=== PATIENT | female | born 1985 | race American Indian/Alaskan Native ===

== ENCOUNTER 2019-01-18 21:03 | Inpatient (IN) | payer MEDICAID ==
[2019-01-18] MEDS ORDERED: ZOFRAN IV PRN (21:28)
[2019-01-18] MEDS ORDERED: MINERAL OIL PO PRN (21:28)
[2019-01-18] MEDS ORDERED: STADOL IV PRN (21:28)
[2019-01-18] MEDS ORDERED: XYLOCAINE 2% INFILTRATI ONE (21:28)
[2019-01-18] MEDS ORDERED: SUBLIMAZE IV PRN (21:28)
[2019-01-18] MEDS ORDERED: BRETHINE SUB-Q PRN (21:28)
[2019-01-18] MEDS ORDERED: BRETHINE IVP PRN (21:28)
[2019-01-18] MEDS ORDERED: NARCAN 0.4 MG/1 ML IV PRN (21:28)
[2019-01-18] MEDS ORDERED: PITOCin/NS 20 UNIT/1000ML DRIP 20 UNITS/1,000 ML BAG IV SCH (22:00)
[2019-01-18] MEDS ORDERED: PITOCin/NS 30 UNIT/500ML 30 UNITS/500 ML BAG IV SCH (22:00)
[2019-01-18 22:48] LABS: Hemoglobin 10.8 gm/dl (10.1-14.3); Mean Corpuscular HGB Conc 36 % (30-34); Mean Corpuscular Volume 98 fl (79-97); Platelet Count 246 K/mm3 (140-440); Red Blood Count 3.07 M/mm3 (3.65-5.03); Red Cell Distribution Width 13.5 % (13.2-15.2)
[2019-01-18] MEDS: LACTATED RINGERS 1,000 ML IV SCH (23:07)
[2019-01-19] MEDS: LACTATED RINGERS 1,000 ML IV SCH (02:54)
--- NOTE | 2019-01-19 08:55 | History and Physical Report ---
History of Present Illness Date of examination: 01/19/19 Date of admission: 01/18/19 21:03 Chief complaint: Here for induction History of present illness: Pt is at 33 yo at 39.0 wks EGA who presents for IOL for IUGR. She has received care at [facility]. Her has been complicated by a UTI (treated) and obesity. She desires permanent sterilization . She reports positive movement and denies LOF or vaginal bleeding. Past History Past Medical History: no pertinent history Past Surgical History: no surgical history Social history: no significant social history - Obstetrical History Expected Date of Delivery: 01/26/19 Actual Gestation: 39 Week(s) 0 Day(s) : 2 Para: 1 Hx # Term Pregnancies: 1 Number of Living Children: 1 Medications and Allergies Allergies Allergy/AdvReac Type Severity Reaction Status Date / Time No Known Allergies Allergy Unverified 11/13/15 06:37 Home Medications Medication Instructions Recorded Confirmed Last Taken Type No Known Home Medications [No 01/18/19 01/18/19 Unknown History Reported Home Medications] Active Meds: Active Medications Butorphanol Tartrate (Stadol) 2 mg IV Q2H PRN PRN Reason: Pain , Severe (7-10) Ephedrine Sulfate (Ephedrine Sulfate) 10 mg IV Q2M PRN PRN Reason: Hypotension Fentanyl (Sublimaze) 100 mcg IV Q2H PRN PRN Reason: Labor Pain Oxytocin/Sodium Chloride (Pitocin/Ns 20 Unit/1000ml Drip) 20 units in 1,000 mls @ 125 mls/hr IV DIRECT UNIQUE Oxytocin/Sodium Chloride (Pitocin/Ns 30 Unit/500ml) 30 units in 500 mls @ 2 mls/hr IV TITR UNIQUE; Protocol Last Titration: 01/19/19 01:05 Dose: 4 mls/hr, 4 mls/hr Documented by: Lactated Ringer's (Lactated Ringers) 1,000 mls @ 125 mls/hr IV DIRECT UNIQUE Last Admin: 01/19/19 02:54 Dose: 125 mls/hr Documented by: Mineral Oil (Mineral Oil) 30 ml PO QHS PRN PRN Reason: Constipation Naloxone HCl (Narcan 0.4 Mg/1 Ml) 0.1 mg IV Q2MIN PRN PRN Reason: Res Rate </= 8 or 02 SAT < 92% Ondansetron HCl (Zofran) 4 mg IV Q8H PRN PRN Reason: Nausea And Vomiting Terbutaline Sulfate (Brethine) 0.25 mg SUB-Q ONCE PRN PRN Reason: Hyperstimulation/Hypertonicity Terbutaline Sulfate (Brethine) 0.25 mg IVP ONCE PRN PRN Reason: Hyperstimulation/Hypertonicity Review of Systems All systems: negative Cardiovascular: no chest pain, no shortness of breath Breasts: deferred Genitourinary: normal appearance, contractions, no vaginal bleeding, no vaginal discharge, no leakage of fluid Neurological: no headaches - Vital Signs Vital signs: Vital Signs Pulse BP 81 119/70 01/18/19 22:14 01/18/19 22:14 Temp Pulse Resp BP Pulse Ox 98.0 F 74 18 122/64 01/19/19 01:50 01/19/19 07:48 01/19/19 01:50 01/19/19 07:48 - Physical Exam Breasts: Positive: deferred Cardiovascular: Regular rate, Normal S1, Normal S2, No murmurs Lungs: Positive: Clear to auscultation, Normal air movement Abdomen: Positive: normal appearance, soft Genitourinary (Female): Positive: normal external genitalia, normal perenium Vagina: Positive: normal moisture Uterus: Positive: normal size (gravid), normal contour Extremities: Positive: normal - Obstetrical FHR: auscultation normal, category 1 Uterine Contraction Monitor Mode: External Cervical Dilatation: 2.5 Cervical Effacement Percentage: 50 station: -3 Uterine Contraction Frequency (min): 3 Uterine Contraction Duration: 60 seconds Uterine Contraction Pattern: Regular Uterine Tone Measurement Phase: Contraction Uterine Contraction Intensity: Mild Results Result Diagrams: 01/18/19 22:30 Abnormal lab results 01/18/19 Range/Units 22:30 RBC 3.07 L (3.65-5.03) M/mm3 Hct 30.0 L (30.3-42.9) % MCV 98 H (79-97) fl MCH 35 H (28-32) pg MCHC 36 H (30-34) % All other labs normal. Assessment and Plan A/P Admit to L&D, initiate Cervidil induction Discussed recommendation of AROM, pt will consider GBS negative, no abx necessary Membranes intact Anticipate
[2019-01-19] MEDS ORDERED: NARCAN 2 MG/2 ML IV PRN (18:42)
--- NOTE | 2019-01-19 18:49 | Anesthesia Consultation ---
Anesthesia Consult and Med Hx Date of service: 01/19/19 - Airway Anesthetic Teeth Evaluation: Good ROM Head & Neck: Adequate Mental/Hyoid Distance: Adequate Mallampati Class: Class III Intubation Access Assessment: Good - Pulmonary Exam CTA: Yes - Cardiac Exam Cardiac Exam: RRR - Pre-Operative Health Status ASA Pre-Surgery Classification: ASA2 Proposed Anesthetic Plan: Epidural - Pulmonary Hx Smoking: Yes (1 pk/day for 11years) Hx Asthma: No Hx Respiratory Symptoms: No SOB: No COPD: No Home Oxygen Therapy: No Hx Pneumonia: No Hx Sleep Apnea: No - Cardiovascular System Hx Hypertension: No Hx Coronary Artery Disease: No Hx Heart Attack/AMI: No Hx Angina: No Hx Percutaneous Transluminal Coronary Angioplasty (PTCA): No Hx Cardia Arrhythmia: No Hx Pacemaker: No Hx Internal Defibrillator: No Hx Valvular Heart Disease: No Hx Heart Murmur: No Hx Peripheral Vascular Disease: No - Central Nervous System Hx Neuromuscular Disorder: No Hx Seizures: No CVA: No Hx Back Pain: No Hx Psychiatric Problems: No - Gastrointestinal Hx Ulcer: No Hx Gastroesophageal Reflux Disease: Yes - Endocrine Hx Renal Disease: No Hx End Stage Renal Disease: No Hx Cirrhosis: No Hx Liver Disease: No Hx Insulin Dependent Diabetes: No Hx Non-Insulin Dependent Diabetes: No Hx Thyroid Disease: No Hx Hypothyroidism: No Hx Hyperthyroidism: No - Hematic Hx Anemia: No Hx Sickle Cell Disease: No - Other Systems Hx Alcohol Use: No Hx Substance Use: No Hx Cancer: No Hx Obesity: Yes (BMI 31)
[2019-01-19] MEDS ORDERED: fentaNYL-BUPIV 2 MCG/ML-0.125% 200 MCG/100 ML BAG EPIDURAL SCH (19:00)
[2019-01-19] MEDS ORDERED: TYLENOL PO PRN (20:41)
[2019-01-19] MEDS ORDERED: LANSINOH TP PRN (20:41)
[2019-01-19] MEDS ORDERED: TUCKS PAD TP PRN (20:41)
[2019-01-19] MEDS ORDERED: PHENERGAN PR PRN (20:41)
[2019-01-19] MEDS ORDERED: ZOFRAN IV PRN (20:41)
[2019-01-19] MEDS ORDERED: PHENERGAN PO PRN (20:41)
[2019-01-19] MEDS ORDERED: MILK OF MAGNESIA PO PRN (20:41)
[2019-01-19] MEDS ORDERED: NORCO 5/325 PO PRN (20:41)
[2019-01-19] MEDS ORDERED: DULCOLAX PR PRN (20:41)
[2019-01-19] MEDS ORDERED: BENADRYL PO PRN (20:41)
--- NOTE | 2019-01-19 20:41 | Procedure Note ---
OB Delivery Note - Delivery Date of Delivery: 01/19/19 Surgeon: JEN BALLARD Estimated blood loss: 300cc - Vaginal Delivery presentation: vertex Delivery position: OA Intrapartum events: none Delivery augmentation: pitocin Delivery monitor: external FHT Route of delivery: Delivery placenta: spontaneous Delivery cord: nuchal cord, 3 umbilical vessels Episiotomy: none Delivery laceration: none Anesthesia: epidural Delivery comments: The patient progressed to complete complete +2 and pushed to deliver a liveborn male infant with Apgars of 9 and 9 weight 6 lbs. 1 oz. After delivery of the head a nuchal cord was manually reduced. The shoulders delivered without difficulty. The cord was clamped and cut 2 and [facility] The placenta delivered spontaneously intact with a three- vessel cord. There were no lacerations noted. Estimated blood loss of 300 mL. - A at 1 minute: 9 at 5 minutes: 9 Infant Gender: Male (weight 6 lbs. 1 oz.)
[2019-01-19] MEDS ORDERED: SODIUM CHLORIDE FLUSH SYRINGE 10 ML IV NR (21:00)
[2019-01-19] MEDS: IBUPROFEN PO SCH (22:08)
[2019-01-20] MEDS: IBUPROFEN PO SCH ×2 (05:59→13:03)
[2019-01-20 08:33] LABS: Hematocrit 28.3 % (30.3-42.9); Hemoglobin 9.8 gm/dl (10.1-14.3)
[2019-01-20 09:19] LABS: Hematocrit 27.7 % (30.3-42.9); Hemoglobin 9.6 gm/dl (10.1-14.3); Mean Corpuscular HGB Conc 35 % (30-34); Mean Corpuscular Volume 99 fl (79-97); Platelet Count 228 K/mm3 (140-440); Red Cell Distribution Width 13.2 % (13.2-15.2)
--- NOTE | 2019-01-20 12:54 | Progress Note ---
Assessment and Plan A: PPD1 s/p Anemia Vital signs stable P: Initiate iron supplementation Anticipate discharge to home tomorrow Subjective - Subjective Date of service: 01/20/19 Principal diagnosis: PPD1 Interval history: Pt is at 33 yo PPD1 s/p following IOL for IUGR at 39.0 wks EGA. EBL 300, no laceration. Patient reports: appetite normal, voiding normally, pain well controlled, ambulating normally : doing well, bottle feeding Objective - Vital Signs Latest vital signs: Vital Signs Temp Pulse Resp BP BP Pulse Ox 01/20/19 12:03 98.8 F 88 20 126/58 98 01/20/19 07:32 98.7 F 84 20 114/64 98 01/20/19 05:33 91 F L 20 114/54 97 01/20/19 00:13 98.2 F 65 18 124/66 97 01/19/19 23:33 75 133/60 01/19/19 23:18 70 130/60 01/19/19 23:08 18 01/19/19 23:03 70 119/55 01/19/19 22:48 77 115/56 01/19/19 22:33 79 107/55 01/19/19 22:19 77 96/41 01/19/19 21:18 88 102/50 01/19/19 21:03 91 H 104/59 01/19/19 20:48 82 112/62 01/19/19 20:33 77 114/55 01/19/19 20:32 83 114/57 01/19/19 20:28 91 H 125/65 01/19/19 20:26 80 98 01/19/19 20:23 74 119/59 01/19/19 20:21 72 99 01/19/19 20:19 69 115/56 01/19/19 20:16 77 99 01/19/19 20:15 78 122/61 01/19/19 20:12 77 112/56 01/19/19 20:11 79 100 01/19/19 20:07 90 118/67 01/19/19 20:06 80 100 01/19/19 20:04 88 121/63 01/19/19 20:01 79 100 01/19/19 19:59 83 121/64 01/19/19 19:56 77 99 07/17/19 19:55 78 117/64 07/17/19 19:51 90 117/65 100 07/17/19 19:47 88 117/66 07/17/19 19:46 86 100 07/17/19 19:43 87 120/65 07/17/19 19:41 73 100 07/17/19 19:40 82 114/61 07/17/19 19:36 88 106/59 99 07/17/19 19:32 70 114/55 07/17/19 19:31 72 100 07/17/19 19:28 67 117/57 79 L /17/19 19:26 75 99 07/17/19 19:24 71 114/57 07/17/19 19:21 69 100 07/17/19 19:19 76 111/59 94 07/17/19 19:16 66 111/55 100 07/17/19 19:12 66 112/56 07/17/19 19:11 63 100 07/17/19 19:08 68 115/58 07/17/19 19:06 76 100 07/17/19 19:04 75 107/57 07/17/19 19:01 78 100 07/17/19 18:59 76 113/55 07/17/19 18:56 72 100 07/17/19 18:55 71 111/56 07/17/19 18:52 66 110/55 07/17/19 18:51 78 100 07/17/19 18:47 75 111/57 07/17/19 18:46 68 98 07/17/19 18:43 81 110/59 07/17/19 18:41 82 99 07/17/19 18:39 75 113/56 07/17/19 18:36 73 112/56 07/17/19 18:35 73 98 07/17/19 18:31 86 113/56 07/17/19 18:30 73 98 07/17/19 18:28 67 110/53 07/17/19 18:25 68 99 07/17/19 18:24 63 107/57 0717/19 18:22 64 75 L 17/19 18:20 58 L 98 07/17/19 18:19 61 131/63 0717/19 18:15 92 H 99 /17/19 18:00 97.8 F 07/17/19 17:49 59 L 129/61 01/19/19 16:49 63 145/71 01/19/19 16:00 98.0 F 01/19/19 15:48 62 120/59 01/19/19 14:48 60 121/67 01/19/19 14:00 98.0 F 01/19/19 13:48 62 122/59 Intake and Output 01/19/19 01/20/19 01/20/19 23:59 07:59 15:59 Intake Total 240 Output Total 500 500 Balance -500 -260 Intake: Oral 240 Output: Urine 500 500 Void 500 500 Other: Total, Intake Amount 240 Total, Output Amount 500 500 Estimated Blood Loss 300 - Exam Cardiovascular: Present: Regular rate, Normal S1, Normal S2, No murmurs Lungs: Present: Clear to auscultation, Normal air movement Abdomen: Present: normal appearance, soft Uterus: Present: normal, firm, fundal height below umbilicus Extremities: Present: normal - Labs Labs: Abnormal lab results 01/20/19 01/20/19 Range/Units 08:21 08:21 WBC 11.4 H (4.5-11.0) K/mm3 RBC 2.80 L (3.65-5.03) M/mm3 Hgb 9.8 L 9.6 L (10.1-14.3) gm/dl Hct 28.3 L 27.7 L (30.3-42.9) % MCV 99 H (79-97) fl MCH 34 H (28-32) pg MCHC 35 H (30-34) %
--- NOTE | 2019-01-20 12:58 | Discharge Summary ---
Providers - Providers Date of Admission: 01/18/19 21:03 Date of discharge: 01/21/19 Attending physician: ALICE WALSH Primary care physician: ALICE WALSH Hospitalization Reason for admission: induction of labor Delivery: Episiotomy: none Laceration: none Other procedures: none complications: none Discharge diagnosis: IUP at term delivered Condition at discharge: Good Disposition: DC-01 TO HOME OR SELFCARE Plan - Discharge Medications Prescriptions: Ferrous Sulfate [Feosol 325 MG tab] 325 mg PO BID #60 tablet Ibuprofen [Motrin 600 MG tab] 800 mg PO Q8HR #60 tablet - Provider Discharge Summary Additional instructions: [] Smoking cessation referral if applicable(refer to patient education folder for contact #) [] Refer to [facility] Booklet Call your doctor immediately for: * Fever > 100.5 * Heavy vaginal bleeding ( >1 pad per hour) * Severe persistent headache * Shortness of breath * Reddened, hot, painful area to leg or breast * Drainage or odor from incision. * Keep incision clean and dry at all times and follow doctor's instructions regarding bathing/showering - Follow up plan Follow up: ALICE WALSH MD [Primary Care Provider] - 14 Days (Please call to schedule appoin tment)
[2019-01-20] MEDS ORDERED: FEOSOL PO SCH (13:00)
[2019-01-20 18:22] VITALS: BP 119/60
[2019-01-21] MEDS ORDERED: BOOSTRIX IM ONE (06:00)
== END 2019-01-20 22:00 | disposition home or self-care (01) | DRG 775 ==
LOC: LD 21:03 → OB 01-19 23:57
PROVIDERS: ADMIT Obstetrics & Gynecology; ATTEND Obstetrics & Gynecology
PROC: 10E0XZZ Delivery of Products of Conception, External Approach (ICD-10-PCS; principal; 2019-01-19)
PROC: 3E0R3BZ Introduction of Anesthetic Agent into Spinal Canal, Percutaneous Approach (ICD-10-PCS; 2019-01-19)
PROC: 00HU33Z Insertion of Infusion Device into Spinal Canal, Percutaneous Approach (ICD-10-PCS; 2019-01-19)
DX: O36.5930 Maternal care for other known or suspected poor fetal growth, third trimester, not applicable or unspecified (principal); Z3A.39 39 weeks gestation of pregnancy; Z37.0 Single live birth; O99.334 Smoking (tobacco) complicating childbirth; F17.200 Nicotine dependence, unspecified, uncomplicated; O99.62 Diseases of the digestive system complicating childbirth; K21.9 Gastro-esophageal reflux disease without esophagitis; O69.81X0 Labor and delivery complicated by cord around neck, without compression, not applicable or unspecified; O90.81 Anemia of the puerperium; D64.9 Anemia, unspecified; O99.214 Obesity complicating childbirth; E66.9 Obesity, unspecified
CPT/HCPCS: 36415; 85014; 85018; 85027; 86592; 86850; 86900; 86901; G0378; J2590; J3010; J7120